=== PATIENT | male | born 1995 | race Asian ===

== ENCOUNTER 2017-02-04 21:03 | Emergency (ER) | payer OTHER ==
[2017-02-04 21:23] VITALS: BP 132/61
[2017-02-04] MEDS ORDERED: Benzonatate CAP* 100 MG PO ONE (21:48)
[2017-02-04] MEDS ORDERED: Acetaminop/Codeine 30 MG TAB* 1 TAB (300 MG/30 MG) PO ONE (21:48)
--- NOTE | 2017-02-04 21:50 | UC ---
Respiratory Complaint HPI - HPI Summary HPI Summary: For the past two days he has had a non-productive cough and nasal congestion. He denies any fevers or sick contacts. He has no history of respiratory illness. He denies any wheezing or shortness of breath. He states that around 8 PM this evening, he felt like he could not stop coughing, and came in to be seen. - History of Current Complaint Chief Complaint: UCGeneralIllness Stated Complaint: COUGH Time Seen by Provider: 02/04/17 21:40 Hx Obtained From: Patient Onset/Duration: Gradual Onset, Lasting Days Timing: Intermittent Episodes Severity Initially: Mild Severity Currently: Moderate Character: Cough: Nonproductive Aggravating Factors: Nothing Alleviating Factors: OTC Meds Associated Signs And Symptoms: Positive: Nasal Congestion. Negative: Dyspnea, Fever, Wheezing - Allergies/Home Medications Allergies/Adverse Reactions: Allergies Allergy/AdvReac Type Severity Reaction Status Date / Time No Known Allergies Allergy Verified 02/04/17 21:12 Home Medications: Home Medications Acetaminophen TAB* [Tylenol TAB*] 650 mg PO Q4H PRN 02/04/17 [History Confirmed 02/04/17] PMH/Surg Hx/FS Hx/Imm Hx Previously Healthy: Yes - Surgical History Surgical History: None - Family History Known Family History: Negative: Blood Disorder - Social History Occupation: Student Lives: With Family Alcohol Use: None Substance Use Type: None Smoking Status (MU): Never Smoked Tobacco Review of Systems Constitutional: Negative Skin: Negative Eyes: Negative ENT: Nasal Discharge Respiratory: Cough Cardiovascular: Negative Gastrointestinal: Negative Genitourinary: Negative Motor: Negative Neurovascular: Negative Musculoskeletal: Negative Neurological: Negative Psychological: Negative All Other Systems Reviewed And Are Negative: Yes Physical Exam Triage Information Reviewed: Yes Appearance: Well-Appearing, No Pain Distress, Well-Nourished Vital Signs: Initial Vital Signs Temp 99.3 F 02/04/17 21:13 Pulse 88 02/04/17 21:13 Resp 18 02/04/17 21:13 BP 132/61 02/04/17 21:13 Pulse Ox 97 02/04/17 21:13 Vital Signs Reviewed: Yes Eye Exam: Normal Eyes: Positive: Conjunctiva Clear ENT Exam: Other ENT: Positive: Hearing grossly normal, Pharynx normal, Nasal congestion, Nasal drainage, TMs normal. Negative: Pharyngeal erythema, Tonsillar swelling, Tonsillar exudate Neck exam: Normal Neck: Positive: Supple, Nontender, No Lymphadenopathy Respiratory Exam: Other Respiratory: Positive: Chest non-tender, Lungs clear, Normal breath sounds, No respiratory distress, No accessory muscle use, Other: - Hoarse cough on exam, non-productive. Cardiovascular Exam: Normal Cardiovascular: Positive: RRR, No Murmur Musculoskeletal Exam: Normal Musculoskeletal: Positive: Strength Intact, ROM Intact Neurological Exam: Normal Neurological: Positive: Alert, Muscle Tone Normal Psychological Exam: Normal Psychological: Positive: Age Appropriate Behavior Skin Exam: Normal UC Diagnostic Evaluation - Laboratory O2 Sat by Pulse Oximetry: 97 Respiratory Course/Dx - Course Course Of Treatment: This is most likely a viral upper respiratory infection. We will dispense a dose of Tylenol with Codeine to help with his cough tonight. We will prescribe him tessalon pearls. He is encouraged to continue taking Ibuprofen if needed for pain. - Differential Dx/Diagnosis Differential Diagnosis/HQI/PQRI: Bronchitis, Influenza, Sinusitis Provider Diagnoses: Viral Upper Respiratory Infection Discharge - Discharge Plan Condition: Stable Disposition: HOME Prescriptions: Benzonatate CAP* [Tessalon 100 MG CAP*] 100 mg PO TID #15 cap Patient Education Materials: Upper Respiratory Infection (ED) Print Language: ARABIC Referrals: Non Staff,Doctor [Primary Care Provider] - Additional Instructions: This is most likely a viral upper respiratory infection. It may take several weeks to go away. Continue to use Ibuprofen as needed for pain, and tessalon pearls for the cough. We will also provide a dose of Tylenol with Codeine for before bed if needed. Please return or follow-up with your primary care provider for fever or worsening illness.
== END 2017-02-04 22:03 | disposition home or self-care (01) ==
LOC: UCCORT 21:03
DX: J06.9 Acute upper respiratory infection, unspecified (principal)
CPT/HCPCS: 99202; A9270-GY; G0463

== ENCOUNTER 2018-12-19 11:49 | Emergency (ER) | payer OTHER ==
[2018-12-19 12:23] VITALS: BP 143/75
--- NOTE | 2018-12-19 12:56 | UC ---
Throat Pain/Nasal Mike HPI - HPI Summary HPI Summary: 23-year-old male comes with chief complaint of several days of upper respiratory tract infection symptoms. Runny nose sore throat nasal congestion. No cough or shortness of breath. Some [id number] medicines to help some with the symptoms. He does have some body aches but they're fairly mild. He also reports the sore throat is fairly mild it's worse when he swallows. - History of Current Complaint Chief Complaint: UCRespiratory Stated Complaint: FLU SX'S Time Seen by Provider: 12/19/18 12:05 Pain Intensity: 6 - Allergies/Home Medications Allergies/Adverse Reactions: Allergies Allergy/AdvReac Type Severity Reaction Status Date / Time nickel Allergy Rash And Verified 12/19/18 12:08 Itching Home Medications: Home Medications Diphenhydram/PE/Dm/Acetamin/GG [Mucinex Fast-Max Day-Nite Cold] 1 each PO ONCE PRN 12/19/18 [History Confirmed 12/19/18] [email or web address] ER TAB [Mucinex*] 600 mg PO TID PRN 12/19/18 [History Confirmed ] PMH/Surg Hx/FS Hx/Imm Hx Previously Healthy: Yes - Surgical History Surgical History: None - Family History Known Family History: Negative: Blood Disorder - Social History Alcohol Use: Occasionally Substance Use Type: None Smoking Status (MU): Former Smoker Review of Systems All Other Systems Reviewed And Are Negative: Yes Constitutional: Positive: Chills Skin: Positive: Negative Eyes: Positive: Negative ENT: Positive: Sore Throat, Nasal Discharge, Sinus Congestion Respiratory: Positive: Negative Cardiovascular: Positive: Negative Gastrointestinal: Positive: Negative Motor: Positive: Negative Neurovascular: Positive: Negative Musculoskeletal: Positive: Negative Neurological: Positive: Negative Psychological: Positive: Negative Is Patient Immunocompromised?: No Physical Exam Triage Information Reviewed: Yes Appearance: No Pain Distress, Well-Nourished, Ill-Appearing - MILD Vital Signs: Initial Vital Signs Temp 97.7 F 12/19/18 12:13 Pulse 116 12/19/18 12:13 Resp 20 12/19/18 12:13 BP 143/75 12/19/18 12:13 Pulse Ox 98 12/19/18 12:13 Vital Signs Reviewed: Yes Eye Exam: Normal Eyes: Positive: Conjunctiva Clear ENT: Positive: Pharyngeal erythema, Nasal congestion, Nasal drainage, TM dull - B/L Neck exam: Normal Neck: Positive: Supple Respiratory: Positive: Lungs clear, Normal breath sounds, No respiratory distress Cardiovascular: Positive: Tachycardia Musculoskeletal Exam: Normal Musculoskeletal: Positive: Strength Intact, ROM Intact Neurological Exam: Normal Neurological: Positive: Alert, Muscle Tone Normal Psychological Exam: Normal Psychological: Positive: Age Appropriate Behavior Skin Exam: Normal Throat Pain/Nasal Course/Dx - Course Course Of Treatment: DISCUSSED VIRAL VERSES BACTERIAL INFECTION AND THE ROLE OF ANTIBIOTICS. THE PATIENT WISHES TO BE ON ANTIBIOTIC AT THIS TIME. - Differential Dx/Diagnosis Provider Diagnosis: Upper respiratory infection Discharge - Sign-Out/Discharge Documenting (check all that apply): Patient Departure All imaging exams completed and their final reports reviewed: No Studies - Discharge Plan Condition: Stable Disposition: HOME Prescriptions: Amoxicillin PO (*) [Amoxicillin 500 MG CAP*] 500 mg PO TID #30 cap Patient Education Materials: Upper Respiratory Infection (ED) Forms: *School Release Referrals: [facility] [Outside] Additional Instructions: FOLLOW UP WITH YOUR DOCTOR IF NOT COMPLETELY IMPROVED. GET RECHECKED FOR ANY WORSENING OF YOUR CONDITION OR QUESTIONS OR CONCERNS. - Billing Disposition and Condition Condition: STABLE Disposition: Home
== END 2018-12-19 13:04 | disposition home or self-care (01) ==
LOC: UCCORT 11:49
DX: J06.9 Acute upper respiratory infection, unspecified (principal); Z91.09 Other allergy status, other than to drugs and biological substances; Z87.891 Personal history of nicotine dependence
CPT/HCPCS: 99212; G0463